=== PATIENT | female | born 1955 ===

== ENCOUNTER 2024-08-14 16:35 | Inpatient (IN) | payer MEDICAID, SELFPAY ==
[2024-08-14 17:10] VITALS: BP 153/76; PULSE 68; RESP 20; TEMP 36.7; O2SAT 100
--- OUTSIDE RECORDS SUMMARY | 2024-08-14 17:50 | XMS_ITS | Encounter Summary ---
Author Organization Formerly [facility] Address [address] [place] [address] Phone Care Team Providers Care Boom Boss Name Role Phone Mindi Ortiz Charu Unavailable Ruchi Floyd MD Primary Care Provider [phone] Ruchi Floyd MD Unavailable [phone] Encounter Details Date Type Department Care Team (Latest Contact Info) Description 08/19/2021 Ancillary Orders [facility] [address] [place] [address] Ruchi Floyd MD [address] [place] [address] [address] [place] [address] [email or web address] Breast asymmetry in female Social History Tobacco Use Types Packs/Day Years Used Date Smoking Tobacco: Former Cigarettes Q uit: 1985 Smokeless Tobacco: Never Alcohol Use Standard Drinks/Week Comments Never 0 (1 standard drink = 0.6 oz pur e alcohol) Comments Unknown Sex and Gender Information Value Date Recorded Sex Assigned at Female 06/19/2021 9:11 AM EDT Legal Sex Female 10:29 AM EDT Gender Identity Female 06/19/2021 9:11 AM EDT Sexual Orientation Straight 06/19/2021 9: 11 AM EDT documented as of this encounter Plan of Treatment Scheduled Procedures Name Priority Associated Diagnoses Date/Ti me COLONOSCOPY Annual physical exam Gastroesophageal reflux disease, unspecified whether esophagitis present documented as of this encounter Results * BI MAMMOGRAM DIAGNOSTIC WITH TOMOSYNTHESIS WITH CAD (RIGHT) (08/21/2021 2:48 PM EDT) Anatomical Region Laterality Modality Breast Right, Breast Bilateral Right M ammography 08/21/2021 Impressions 08/21/2021 2:53 PM EDT Asymmetry in the right breast noted at screening is shown to be benign superimposition of normal structures. There is no mammographic evidence of malignancy. BI-RADS Category 1: Negative Narrative 08/21/2021 2:53 PM EDT HISTORY: 66 year old female seen for callback from screening mammography. PROCEDURE: Diagnostic mammographic and tomosynthesis views were obtained. Computer-aided detection was utilized by the radiologist in the interpretation of this examination. RIGHT BREAST MAMMOGRAM: The present study is compared to previous imaging. There are scattered fibroglandular densities. The patient was recalled from screening mammography to evaluate an asymmetry in the right breast. ??Additional mammographic imaging demonstrates that the asymmetry seen at screening represented benign superimposition of normal structures. ??No mammographic abnormality is evident. ??The patient should return to annual mammographic screening. Procedure Note Jemima Castillo MD - 08/21/2021 HISTORY: 66 year old female seen for callback from screening mammography. PROCEDURE: Diagnostic mammographic and tomosynthesis views were obtained.Computer-aided detection was utilized by the radiologist in theinterpretation of this examination. RIGHT BREAST MAMMOGRAM: The present study is compared to previous imaging. There are scattered fibroglandular densities. The patient was recalled from screening mammography to evaluate anasymmetry in the right breast. Additional mammographic imagingdemonstrates that the asymmetry seen at screening represented benignsuperimposition of normal structures. No mammographic abnormality isevident. The patient should return to annual mammographic screening. IMPRESSION: Asymmetry in the right breast noted at screening is shown to be benignsuperimposition of normal structures. There is no mammographic evidence ofmalignancy. BI-RADS Category 1: Negative us Ruchi Floyd MD IMG MG EXAMS Final Result documented in this encounter Visit Diagnoses Diagnosis Breast asymmetry in female Breast asymmetry in female documented in this encounter Additional Health Concerns Infection Onset Date Last Indicated Resolved Time COVID-19 10/05/2023 10/05/2023 10/26/2023 1:22 AM EDT Assessment Noted Time PHQ-2 Depression Total Score: 0 08/14/19 1:43 PM EDT documented as of this encounter Care Teams Boom Boss Relationship Specialty Start Date End Date Ruchi Floyd MD [address] [place] [address] [address] [place] [phone] [email or web address] PCP - General Internal Medicine 08/13/21 Mindi Ortiz [address] [place] [phone] [email or web address] Community Health Worker 05/27/21 01/08/22 Ruchi Floyd MD [address] [place] [address] [place] [phone] [email or web address] Attributed Provider 07/11/22 07/16/23 documented as of this encounter Additional Source Comments The information contained in this document represents components of the legal health record. It is not the complete legal health record.Formerly [facility]
--- NOTE | 2024-08-14 18:31 | PC.ADMIT ---
This is the 1st admission for this 69 y.o. woman to this Behavioral Health Unit at [facility]. Arrived on unit via EMS at 1655 and placed on 5min safety checks, unlocked bathroom. Nurse to nurse done with [facility] ED, referred by crisis with Dx Unspecified Dementia, unspecified severity, with agitation. Advanced Alzheimer's with hx striking, kicking others. Daughter, Cristino, identified as HCP and contacted re: meds at home and what speech language assistant should be utilized during interactions and if sign language interpreter needed. Cristino states pt does not speak in any language, but motor vehicle parts interpreter should be utilized if attempted. Tox screen negative 08/05/24, COVID negative 08/06/24. Med list from [facility] and recent home use differ from list obtained from [facility] ED; provider, Elly Chu notified. Pt has been in [facility] ED since 08/05/24, most recent med list. Upon arrival pt is confused, responding minimally in nonsensical sounds/words. Arrived with stuffed Christie Mouse which she threw at EMS personnel. Grabbing tightly at all items located near her. Pinched, struck at staff lightly during skin assessment, removal of prior clothes. Unable to participate in admission process. Information retrieved via crisis eval, daughters and nurse to nurse [facility] ED. Restlessness noted while in milieu, pacing frequently, attempting to open doors. Difficult to redirect, but continued to pace and go to different doors to try and open. Holding baby doll and intermittently hits it against things. Admission orders received from Elly Chu, provider.
[2024-08-14 19:18] VITALS: BMI 23.5
[2024-08-14] MEDS: OLANZapine 5 MG TABLET PO ×2 (21:40)
[2024-08-14] MEDS: QUEtiapine Fumarate 25 MG TABLET PO (21:40)
[2024-08-14] MEDS: traZODone HCL 50 MG TABLET PO (21:40)
--- NOTE | 2024-08-15 10:33 | HO.HCP ---
Health Care Proxy Invocation Health Care Proxy Declaration: I, Samuel Weathers MD , on the date cited below, have determined that, ___Leonie Muller , lacks the capacity to make or communicate, informed health care decision. This determination is made in accordance with accepted standards of medical judgment and pursuant to [place], the [facility] Care Proxy Law. The cause, nature, extent and probable duration of the patient's inapacity are described below: Cause: Alzheimer's Dementia Nature: Alzheimer's Dementia Extent: complete Probable Duration of Patient's Incapacity: permanent
--- NOTE | 2024-08-15 10:35 | HO.PSYADMNOT ---
HPI Date of Service: 08/15/24 Chief Complaint: F03.911 HPI Narrative: pt with advanced alzheimer's dementia who has been cared for at home by her daughter presented to outside hospital with gradually more aggressive behaviors such that family is no longer able to manage her. pt has increasingly romain throwing objects in the house, pushing people, hitting people, biting people. disrobing in front of others. medical w/u at outside ED unremarkable. pt essentially mute, pulling on MD's badge, punching at MD weakly. smiles throughout. on 1:1 for safety. no intelligible speech produced. 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 , worked as director information security. immigrated from [place] 3 yrs ago. Substance History: none Diagnostics Vital Signs (24Hr): Vital Signs - 24 hr 08/14/24 17:10 Temperature 98.1 F Pulse Rate 68 Respiratory Rate 20 Blood Pressure 153/76 H Pulse Oximetry 100 Oxygen Delivery Method Room Air BMI result Body Mass Index 23.5 Meds/Allergies Meds Home Medications ?Medication ?Instructions ?Recorded ?Confirmed ?Type mirtazapine 7.5 mg tablet 7.5 mg PO BEDTIME PRN Insomnia 08/14/24 08/14/24 History olanzapine 5 mg disintegrating 5 mg PO BEDTIME 08/14/24 08/14/24 History tablet olanzapine 5 mg disintegrating 5 mg PO Q8H PRN Paranoia 08/14/24 08/14/24 History tablet quetiapine 25 mg tablet 25 mg PO Q6H PRN Racing thoughts 08/14/24 08/14/24 History Allergies Allergies Allergy/AdvReac Type Severity Reaction Status Date / Time No Known Allergies Allergy Verified 08/14/24 18:16 Mental Status Exam Mental Status Exam Narrative: pleasant, essentially non-verbal. attempts to pull off MD's badge and also makes a cheeky slow-motion attempt to punch at MD. no PMA/PMR otherwise. affect smiling throughout. mood unable to assess. SI/HI/AVH unable to assess. Assessment & Plan Assessment & Plan (1) Alzheimer dementia with behavioral disturbance: Status: Acute Code(s): G30.9 - Alzheimer's disease, unspecified; F02.818 - Dementia in other diseases classified elsewhere, unspecified severity, with other behavioral disturbance Plan 1:1 for safety. HCP invoked. family mtg help with SW and CONDEMNATION ENGINEER. will clarify medications allowable per HCP. contact outpt provider for collateral. in the meantime, observe pt's baseline behaviors. Patient educated on: other Reason for continued inpatient stay Substantial Risk for: harm to others and inability to function Statement Statement: I have reviewed the history and physical and performed a pertinent examination on my patient. No changes have occurred unless specified. If the History and Physical was not performed prior to admission, the Hospitalist's service will be consulted for completing the admission physical. Time Spent With Patient Time: Total time managing care of this patient today __55__ minutes.
--- NOTE | 2024-08-15 11:26 | HO.PM.IMCN ---
History of Present Illness Data of Consult Service Date: 08/15/24 Primary Care Provider: Unknown Physician HPI Reason for consult: Medical consult 69-year-old female with Alzheimer's dementia with behavioral disturbance. She is brought to the ED at [facility] due to increased behavioral disturbances. Her family is unable to take care of her any longer at home due to behavioral disturbances. Notably she has been nonverbal for about [address] head did not demonstrate any acute process, her CMP was within normal limits, magnesium within normal limits, UA was negative, and CBC was within normal limits no viral illnesses and she had a negative tox screen. She is admitted here for further care. On exam she is ambulatory has a one-to-one right now. Does not answer questions or follow directions. She does not appear to be in any acute distress. Review of Systems Review of Systems: Patient is unable to provide review of symptoms due to nonverbal and advanced Alzheimer's dementia [facility] Social History Household Members: Family Housing: Unknown / Unable to assess Do you presently have visiting nurse or other home services: No Patient Tobacco Use Status: Never used Tobacco Smoked in Last 30 Days: No e-Cigarette/Vaping Use: Never Used Currently Displaying Signs/Symptoms of Drug Intoxication Withdrawal: No Advance Directives: No Advance Directives Information Provided: No Do you have a plan to hurt others: No Plan Recently lost weight without trying: No Eating poorly because of decreased appetite: No Nutrition Risks: No Nutritional Risk Patient : No : No Poor oral hygiene: No service: No Meds Allergies Allergy/AdvReac Type Severity Reaction Status Date / Time No Known Allergies Allergy Verified 08/14/24 18:16 Active Medications: Current Medications Acetaminophen (Acetaminophen 325 Mg Tablet) 650 mg PO Q6H PRN PRN Reason: Headache/Pain, Scale 1-10 Al Hydroxide/Mg Hydroxide (Magnesium Hydrox/Alum Hydrox 30 Ml Oral.Susp) 30 ml PO Q6H PRN PRN Reason: Heartburn/Nausea Magnesium Hydroxide (Milk Of Magnesia 30 Ml Oral.Susp) 30 ml PO DAILY PRN PRN Reason: Constipation Mirtazapine (Mirtazapine 7.5 Mg Tablet) 7.5 mg PO BEDTIME PRN PRN Reason: Insomnia Olanzapine (Olanzapine 5 Mg Tablet) 5 mg PO BEDTIME DORA Last Admin: 08/14/24 21:40 Dose: 5 mg Olanzapine (Olanzapine 5 Mg Tablet) 5 mg PO Q8H PRN PRN Reason: Paranoia Last Admin: 08/14/24 21:40 Dose: 5 mg Quetiapine Fumarate (Quetiapine Fumarate 25 Mg Tablet) 25 mg PO Q6H PRN PRN Reason: Racing thoughts Last Admin: 08/14/24 21:40 Dose: 25 mg Trazodone HCl (Trazodone Hcl 50 Mg Tablet) 50 mg PO BEDTIME MRX1 PRN PRN Reason: Insomnia Last Admin: 08/14/24 21:40 Dose: 50 mg Home Medications ?Medication ?Instructions ?Recorded ?Confirmed ?Last Taken ?Type mirtazapine 7.5 mg tablet 7.5 mg PO BEDTIME PRN Insomnia 08/14/24 08/14/24 08/13/24 20:06 History olanzapine 5 mg disintegrating 5 mg PO BEDTIME 08/14/24 08/14/24 08/13/24 20:06 History tablet olanzapine 5 mg disintegrating 5 mg PO Q8H PRN Paranoia 08/14/24 08/14/24 08/14/24 12:52 History tablet quetiapine 25 mg tablet 25 mg PO Q6H PRN Racing thoughts 08/14/24 08/14/24 08/13/24 21:28 History Physical Exam Vital Signs and Narrative: Vital Signs: Last Vital Signs Temp 98.1 F 08/14/24 17:10 Pulse 68 08/14/24 17:10 Resp 20 08/14/24 17:10 BP 153/76 H 08/14/24 17:10 Pulse Ox 100 08/14/24 17:10 O2 Del Method Room Air 08/14/24 17:10 BMI result Body Mass Index 23.5 CONST: Alert and oriented, in NAD. Well nourished, non verbal HEENT: Normocephalic, atraumatic, MMM RESP: Lungs clear, RRR even and regular HEART:,RRR, S1, S2. no edema GI:Abdomen Soft NT, ND. + BS times four :Deferred SKIN: Warm dry and intact, no visible lesions or rashes NEURO:CN II-XII Intact bilaterally, ambulating with steady gait. PSYCH: Normal affect Assessment and Plan (1) Alzheimer dementia with behavioral disturbance: Status: Acute Plan 69-year-old female with advanced Alzheimer's dementia with behavioral disturbances, admitted from [facility] after she was brought there by her family due to increased behavioral disturbances and inability to care for her. Alzheimer's dementia with behavioral disturbance Psychiatric care per team 1to1 at this time Thank you for allowing me to participate in the care of this patient. Will follow as needed. Please notify medical providers of any acute complaints or issues arise
[2024-08-15] MEDS: OLANZapine 5 MG TABLET PO (11:38)
[2024-08-15 20:00] VITALS: BP 121/60; PULSE 61; RESP 16; TEMP 36.6; O2SAT 99
[2024-08-16] MEDS: OLANZapine 5 MG TABLET PO ×2 (04:52→20:44)
[2024-08-16] MEDS: QUEtiapine Fumarate 25 MG TABLET PO ×2 (04:53→21:39)
[2024-08-16 08:00] VITALS: RESP 18
[2024-08-16 20:00] VITALS: BP 122/62; PULSE 62; RESP 16; TEMP 36.5; O2SAT 99
--- NOTE | 2024-08-16 20:56 | HO.PSYCHPN ---
Subjective Subjective Date of Service: 08/16/24 Reason For Visit: F03.911 Subjective Notes: Conditional Voluntary Healthcare Proxy: Yes Interim History: Pt slept through the night. She is ambulating with one to one. Not oriented to place, month, year nor situation. mostly non verbal, smiling. Review of Systems Review of Systems Patient is unable to provide review of symptoms due to nonverbal and advanced Alzheimer's dementia Mental Status Exam Mental Status Exam Narrative: pleasant, essentially non-verbal. attempts to pull off MD's badge and also makes a cheeky slow-motion attempt to punch at MD. no PMA/PMR otherwise. affect smiling throughout. mood unable to assess. SI/HI/AVH unable to assess. Diagnostics Vital Signs (24Hr): Vital Signs - 24 hr 08/16/24 08:00 08/16/24 20:00 Temperature 97.7 F Pulse Rate 62 Respiratory Rate 18 16 Blood Pressure 122/62 Pulse Oximetry 99 Oxygen Delivery Method Room Air BMI result Body Mass Index 23.5 Medications Medications Current Medications Acetaminophen (Acetaminophen 325 Mg Tablet) 650 mg PO Q6H PRN PRN Reason: Headache/Pain, Scale 1-10 Al Hydroxide/Mg Hydroxide (Magnesium Hydrox/Alum Hydrox 30 Ml Oral.Susp) 30 ml PO Q6H PRN PRN Reason: Heartburn/Nausea Magnesium Hydroxide (Milk Of Magnesia 30 Ml Oral.Susp) 30 ml PO DAILY PRN PRN Reason: Constipation Mirtazapine (Mirtazapine 7.5 Mg Tablet) 7.5 mg PO BEDTIME PRN PRN Reason: Insomnia Olanzapine (Olanzapine 5 Mg Tablet) 5 mg PO BEDTIME DORA Last Admin: 08/16/24 20:44 Dose: 5 mg Olanzapine (Olanzapine 5 Mg Tablet) 5 mg PO Q8H PRN PRN Reason: Paranoia Last Admin: 08/16/24 04:52 Dose: 5 mg Quetiapine Fumarate (Quetiapine Fumarate 25 Mg Tablet) 25 mg PO Q6H PRN PRN Reason: Racing thoughts Last Admin: 08/16/24 04:53 Dose: 25 mg Trazodone HCl (Trazodone Hcl 50 Mg Tablet) 50 mg PO BEDTIME MRX1 PRN PRN Reason: Insomnia Last Admin: 08/14/24 21:40 Dose: 50 mg Allergies Allergies Allergy/AdvReac Type Severity Reaction Status Date / Time No Known Allergies Allergy Verified 08/14/24 18:16 Assessment & Plan Assessment & Plan (1) Alzheimer dementia with behavioral disturbance: Status: Acute Code(s): G30.9 - Alzheimer's disease, unspecified; F02.818 - Dementia in other diseases classified elsewhere, unspecified severity, with other behavioral disturbance Plan 08/16 will simplify regimen- d/c seroquel. will keep olanzapine 5mg po qhs, add 2.5mg po daily at 1300, prn olanzapine 2.5mg po TID prn agitation. monitor oversedation, maintain adequate hydration, s/s of ortho hotn. VS stable. Reason for continued inpatient stay Substantial Risk for: inability to function Time Spent With Patient Time: Total time managing care of this patient today ____ minutes.
[2024-08-16] MEDS: traZODone HCL 50 MG TABLET PO (21:39)
[2024-08-17 11:17] VITALS: BMI 23.0
[2024-08-17] MEDS: OLANZapine 2.5 MG TABLET PO (13:13)
--- NOTE | 2024-08-17 16:16 | P.PNPSI_ITS ---
Subjective Subjective Date of Service: 08/17/24 Reason For Visit: F03.911 Interim History: wandering, intrusive, touching others. Mental Status Exam Mental Status Exam Narrative: pleasant, non-verbal. pacing/wandering. affect smiling throughout. mood unable to assess. SI/HI/AVH unable to assess. Diagnostics Vital Signs (24Hr): Vital Signs - 24 hr 08/16/24 20:00 Temperature 97.7 F Pulse Rate 62 Respiratory Rate 16 Blood Pressure 122/62 Pulse Oximetry 99 Oxygen Delivery Method Room Air BMI result Body Mass Index 23.0 Medications Medications Current Medications Acetaminophen (Acetaminophen 325 Mg Tablet) 650 mg PO Q6H PRN PRN Reason: Headache/Pain, Scale 1-10 Al Hydroxide/Mg Hydroxide (Magnesium Hydrox/Alum Hydrox 30 Ml Oral.Susp) 30 ml PO Q6H PRN PRN Reason: Heartburn/Nausea Magnesium Hydroxide (Milk Of Magnesia 30 Ml Oral.Susp) 30 ml PO DAILY PRN PRN Reason: Constipation Olanzapine (Olanzapine 5 Mg Tablet) 5 mg PO BEDTIME [facility] Last Admin: 08/16/24 20:44 Dose: 5 mg Olanzapine (Olanzapine 2.5 Mg Tablet) 2.5 mg PO TID PRN PRN Reason: agitation Olanzapine (Olanzapine 2.5 Mg Tablet) 2.5 mg PO DAILY@1300 [facility] Last Admin: 08/17/24 13:13 Dose: 2.5 mg Trazodone HCl (Trazodone Hcl 50 Mg Tablet) 50 mg PO BEDTIME PRN PRN Reason: Insomnia Allergies Allergies Allergy/AdvReac Type Severity Reaction Status Date / Time No Known Allergies Allergy Verified 08/14/24 18:16 Assessment & Plan Assessment & Plan (1) Alzheimer dementia with behavioral disturbance: Status: Acute Code(s): G30.9 - Alzheimer's disease, unspecified; F02.818 - Dementia in other diseases classified elsewhere, unspecified severity, with other behavioral disturbance Plan 08/16 will simplify regimen- d/c seroquel. will keep olanzapine 5mg po qhs, add 2.5mg po daily at 1300, prn olanzapine 2.5mg po TID prn agitation. monitor oversedation, maintain adequate hydration, s/s of ortho hotn. VS stable. 08/17: active, wandering, intrusive. add VPA 125 mg TID. otherwise continue current mgmt. case D/W johanna and ELIZABETH Lanza. Reason for continued inpatient stay Substantial Risk for: harm to others and inability to function Time Spent With Patient Time: Total time managing care of this patient today _25___ minutes.
[2024-08-17] MEDS: Divalproex Sodium Sprinkles 125 MG CAP.DR.SPR PO ×2 (16:53→20:51)
[2024-08-17 20:00] VITALS: BP 129/65; PULSE 64; RESP 16; TEMP 36.3; O2SAT 99
[2024-08-17] MEDS: OLANZapine 5 MG TABLET PO (20:51)
[2024-08-18 08:00] VITALS: BP 118/69; PULSE 66; RESP 16; TEMP 36.3; O2SAT 99
[2024-08-18] MEDS: Divalproex Sodium Sprinkles 125 MG CAP.DR.SPR PO ×3 (09:54→20:32)
[2024-08-18] MEDS: OLANZapine 2.5 MG TABLET PO (13:17)
[2024-08-18 20:00] VITALS: BP 127/66; PULSE 80; RESP 16; TEMP 36.9; O2SAT 99
[2024-08-18] MEDS: Acetaminophen 325 MG TABLET 650 MG PO (20:31)
[2024-08-18] MEDS: OLANZapine 5 MG TABLET PO (20:32)
[2024-08-18] MEDS: traZODone HCL 50 MG TABLET PO (20:32)
[2024-08-19] MEDS: Divalproex Sodium Sprinkles 125 MG CAP.DR.SPR PO ×3 (10:17→20:44)
[2024-08-19 11:14] VITALS: BP 132/64; PULSE 89; RESP 16; TEMP 36.8
[2024-08-19] MEDS: OLANZapine 2.5 MG TABLET PO (12:25)
[2024-08-19 20:00] VITALS: BP 152/63; PULSE 70; RESP 18; TEMP 37; O2SAT 100
[2024-08-19] MEDS: Acetaminophen 325 MG TABLET 650 MG PO (20:44)
[2024-08-19] MEDS: traZODone HCL 50 MG TABLET PO (20:44)
[2024-08-19] MEDS: OLANZapine 5 MG TABLET PO (20:44)
--- NOTE | 2024-08-19 23:33 | P.PNPSI_ITS ---
Subjective Subjective Date of Service: 08/19/24 Reason For Visit: F03.911 Interim History: Met with patient; discussed with team Patient walking around aimlessly, disorganized, needing one-to-one otherwise walking into other people's bedrooms. Patient does not talk; has a fixed smile. Mental Status Exam Mental Status Exam Narrative: pleasant, non-verbal. Disorganized pacing/wandering. affect with fixed smile. mood unable to assess. SI/HI/AVH unable to assess. Diagnostics Vital Signs (24Hr): Vital Signs - 24 hr 08/19/24 11:14 08/19/24 20:00 Temperature 98.2 F 98.6 F Pulse Rate 89 70 Respiratory Rate 16 18 Blood Pressure 132/64 152/63 H Pulse Oximetry 100 Oxygen Delivery Method Room Air BMI result Body Mass Index 23.0 Medications Medications Current Medications Acetaminophen (Acetaminophen 325 Mg Tablet) 650 mg PO Q6H PRN PRN Reason: Headache/Pain, Scale 1-10 Last Admin: 08/19/24 20:44 Dose: 650 mg Al Hydroxide/Mg Hydroxide (Magnesium Hydrox/Alum Hydrox 30 Ml Oral.Susp) 30 ml PO Q6H PRN PRN Reason: Heartburn/Nausea Divalproex Sodium (Divalproex Sodium Sprinkles 125 Mg ) 125 mg PO TID [facility] Last Admin: 08/19/24 20:44 Dose: 125 mg Magnesium Hydroxide (Milk Of Magnesia 30 Ml Oral.Susp) 30 ml PO DAILY PRN PRN Reason: Constipation Olanzapine (Olanzapine 5 Mg Tablet) 5 mg PO BEDTIME [facility] Last Admin: 08/19/24 20:44 Dose: 5 mg Olanzapine (Olanzapine 2.5 Mg Tablet) 2.5 mg PO TID PRN PRN Reason: agitation Olanzapine (Olanzapine 2.5 Mg Tablet) 2.5 mg PO DAILY@1300 [facility] Last Admin: 08/19/24 12:25 Dose: 2.5 mg Trazodone HCl (Trazodone Hcl 50 Mg Tablet) 50 mg PO BEDTIME PRN PRN Reason: Insomnia Last Admin: 08/19/24 20:44 Dose: 50 mg Allergies Allergies Allergy/AdvReac Type Severity Reaction Status Date / Time No Known Allergies Allergy Verified 08/14/24 18:16 Assessment & Plan Assessment & Plan (1) Alzheimer dementia with behavioral disturbance: Status: Acute Code(s): G30.9 - Alzheimer's disease, unspecified; F02.818 - Dementia in other diseases classified elsewhere, unspecified severity, with other behavioral disturbance Plan 08/16 will simplify regimen- d/c seroquel. will keep olanzapine 5mg po qhs, add 2.5mg po daily at 1300, prn olanzapine 2.5mg po TID prn agitation. monitor oversedation, maintain adequate hydration, s/s of ortho hotn. VS stable. 08/17: active, wandering, intrusive. add VPA 125 mg TID. otherwise continue current mgmt. case D/W johanna and ELIZABETH Lanza. 08/19 staff reports no aggressive behaviors Reason for continued inpatient stay Substantial Risk for: inability to function Time Spent With Patient Time: Total time managing care of this patient today ____ minutes.
[2024-08-20 08:00] VITALS: RESP 16
[2024-08-20] MEDS: Divalproex Sodium Sprinkles 125 MG CAP.DR.SPR PO ×3 (08:47→20:27)
[2024-08-20] MEDS: OLANZapine 2.5 MG TABLET PO (13:06)
--- NOTE | 2024-08-20 14:48 | HO.PSYCHPN ---
Subjective Subjective Date of Service: 08/20/24 Reason For Visit: F03.911 Interim History: Met with patient; discussed with team No change in presentation; walking aimlessly, requiring one-to-one for redirection; fixed smile. Remains without any agitation. Requires help with all ADLs Mental Status Exam Mental Status Exam Narrative: pleasant, non-verbal. Disorganized pacing/wandering. affect with fixed smile. mood unable to assess. SI/HI/AVH unable to assess. Diagnostics Vital Signs (24Hr): Vital Signs - 24 hr 08/19/24 20:00 08/20/24 08:00 Temperature 98.6 F Pulse Rate 70 Respiratory Rate 18 16 Blood Pressure 152/63 H Pulse Oximetry 100 Oxygen Delivery Method Room Air BMI result Body Mass Index 23.0 Medications Medications Current Medications Acetaminophen (Acetaminophen 325 Mg Tablet) 650 mg PO Q6H PRN PRN Reason: Headache/Pain, Scale 1-10 Last Admin: 08/19/24 20:44 Dose: 650 mg Al Hydroxide/Mg Hydroxide (Magnesium Hydrox/Alum Hydrox 30 Ml Oral.Susp) 30 ml PO Q6H PRN PRN Reason: Heartburn/Nausea Divalproex Sodium (Divalproex Sodium Sprinkles 125 Mg [place].) 125 mg PO TID [facility] Last Admin: 08/20/24 08:47 Dose: 125 mg Magnesium Hydroxide (Milk Of Magnesia 30 Ml Oral.Susp) 30 ml PO DAILY PRN PRN Reason: Constipation Olanzapine (Olanzapine 5 Mg Tablet) 5 mg PO BEDTIME [facility] Last Admin: 08/19/24 20:44 Dose: 5 mg Olanzapine (Olanzapine 2.5 Mg Tablet) 2.5 mg PO TID PRN PRN Reason: agitation Olanzapine (Olanzapine 2.5 Mg Tablet) 2.5 mg PO DAILY@1300 [facility] Last Admin: 08/20/24 13:06 Dose: 2.5 mg Trazodone HCl (Trazodone Hcl 50 Mg Tablet) 50 mg PO BEDTIME PRN PRN Reason: Insomnia Last Admin: 08/19/24 20:44 Dose: 50 mg Allergies Allergies Allergy/AdvReac Type Severity Reaction Status Date / Time No Known Allergies Allergy Verified 08/14/24 18:16 Assessment & Plan Assessment & Plan (1) Alzheimer dementia with behavioral disturbance: Status: Acute Code(s): G30.9 - Alzheimer's disease, unspecified; F02.818 - Dementia in other diseases classified elsewhere, unspecified severity, with other behavioral disturbance Plan 08/16 will simplify regimen- d/c seroquel. will keep olanzapine 5mg po qhs, add 2.5mg po daily at 1300, prn olanzapine 2.5mg po TID prn agitation. monitor oversedation, maintain adequate hydration, s/s of ortho hotn. VS stable. 08/17: active, wandering, intrusive. add VPA 125 mg TID. otherwise continue current mgmt. case D/W johanna and ELIZABETH Lanza. 08/19 staff reports no aggressive behaviors Reason for continued inpatient stay Substantial Risk for: inability to function Time Spent With Patient Time: Total time managing care of this patient today ____ minutes.
[2024-08-20 20:00] VITALS: BP 113/59; PULSE 87; RESP 17; TEMP 36.3; O2SAT 97
[2024-08-20] MEDS: Acetaminophen 325 MG TABLET 650 MG PO (20:27)
[2024-08-20] MEDS: OLANZapine 5 MG TABLET PO (20:27)
[2024-08-20] MEDS: traZODone HCL 50 MG TABLET PO (20:28)
[2024-08-21 08:00] VITALS: BP 133/62; PULSE 62; RESP 18; TEMP 36.2; O2SAT 100
[2024-08-21] MEDS: Divalproex Sodium Sprinkles 125 MG CAP.DR.SPR PO ×3 (09:32→20:45)
[2024-08-21] MEDS: OLANZapine 2.5 MG TABLET PO (12:20)
--- NOTE | 2024-08-21 13:46 | P.PNPSI_ITS ---
Subjective Subjective Date of Service: 08/21/24 Reason For Visit: F03.911 Interim History: snoozing loudly. per 1:1, pt was up from 0600 through just prior to MD's visit around 1130. not rousable to loud voice. per staff, sleeping, talking with one to one. No aggression. Mental Status Exam Mental Status Exam Narrative: pleasant, non-verbal. snoozing in bed with blanket over her face. mood unable to assess. SI/HI/AVH unable to assess. Diagnostics Vital Signs (24Hr): Vital Signs - 24 hr 08/20/24 20:00 08/21/24 08:00 Temperature 97.3 F 97.2 F Pulse Rate 87 62 Respiratory Rate 17 18 Blood Pressure 113/59 L 133/62 Pulse Oximetry 97 100 Oxygen Delivery Method Room Air Room Air BMI result Body Mass Index 23.0 Medications Medications Current Medications Acetaminophen (Acetaminophen 325 Mg Tablet) 650 mg PO Q6H PRN PRN Reason: Headache/Pain, Scale 1-10 Last Admin: 08/20/24 20:27 Dose: 650 mg Al Hydroxide/Mg Hydroxide (Magnesium Hydrox/Alum Hydrox 30 Ml Oral.Susp) 30 ml PO Q6H PRN PRN Reason: Heartburn/Nausea Divalproex Sodium (Divalproex Sodium Sprinkles 125 Mg ) 125 mg PO TID [facility] Last Admin: 08/21/24 09:32 Dose: 125 mg Magnesium Hydroxide (Milk Of Magnesia 30 Ml Oral.Susp) 30 ml PO DAILY PRN PRN Reason: Constipation Olanzapine (Olanzapine 5 Mg Tablet) 5 mg PO BEDTIME [facility] Last Admin: 08/20/24 20:27 Dose: 5 mg Olanzapine (Olanzapine 2.5 Mg Tablet) 2.5 mg PO TID PRN PRN Reason: agitation Olanzapine (Olanzapine 2.5 Mg Tablet) 2.5 mg PO DAILY@1300 [facility] Last Admin: 08/21/24 12:20 Dose: 2.5 mg Trazodone HCl (Trazodone Hcl 50 Mg Tablet) 50 mg PO BEDTIME PRN PRN Reason: Insomnia Last Admin: 08/20/24 20:28 Dose: 50 mg Allergies Allergies Allergy/AdvReac Type Severity Reaction Status Date / Time No Known Allergies Allergy Verified 08/14/24 18:16 Assessment & Plan Assessment & Plan (1) Alzheimer dementia with behavioral disturbance: Status: Acute Code(s): G30.9 - Alzheimer's disease, unspecified; F02.818 - Dementia in other diseases classified elsewhere, unspecified severity, with other behavioral disturbance Plan 08/16 will simplify regimen- d/c seroquel. will keep olanzapine 5mg po qhs, add 2.5mg po daily at 1300, prn olanzapine 2.5mg po TID prn agitation. monitor oversedation, maintain adequate hydration, s/s of ortho hotn. VS stable. 08/17: active, wandering, intrusive. add VPA 125 mg TID. otherwise continue current mgmt. case D/W johanna and ELIZABETH Lanza. 08/19 staff reports no aggressive behaviors 08/21: no aggressive behaviors. wandering. talking to nobody. continue current mgmt. Reason for continued inpatient stay Substantial Risk for: harm to self, harm to others and inability to function Time Spent With Patient Time: Total time managing care of this patient today ____ minutes.
[2024-08-21 20:00] VITALS: BP 129/60; PULSE 72; RESP 16; TEMP 36.1; O2SAT 100
[2024-08-21] MEDS: OLANZapine 5 MG TABLET PO (20:45)
[2024-08-22 08:08] VITALS: BP 116/77; PULSE 71; RESP 16; TEMP 36.2; O2SAT 100
[2024-08-22] MEDS: Divalproex Sodium Sprinkles 125 MG CAP.DR.SPR PO ×3 (08:18→20:35)
--- NOTE | 2024-08-22 12:20 | P.PNPSI_ITS ---
Subjective Subjective Date of Service: 08/22/24 Reason For Visit: F03.911 Interim History: generally less aggressive and intrusive. per staff, pleasantly confused. wandering. CO. lightly attempting to strike others on occasion. difficult to redirect. eating, taking meds. Mental Status Exam Mental Status Exam Narrative: pleasant, essentially non-verbal. no PMA/PMR. affect smiling throughout. mood unable to assess. SI/HI/AVH unable to assess. Diagnostics Vital Signs (24Hr): Vital Signs - 24 hr 08/21/24 20:00 08/22/24 08:08 Temperature 97 F 97.2 F Pulse Rate 72 71 Respiratory Rate 16 16 Blood Pressure 129/60 116/77 Pulse Oximetry 100 Oxygen Delivery Method Room Air BMI result Body Mass Index 23.0 Medications Medications Current Medications Acetaminophen (Acetaminophen 325 Mg Tablet) 650 mg PO Q6H PRN PRN Reason: Headache/Pain, Scale 1-10 Last Admin: 08/20/24 20:27 Dose: 650 mg Al Hydroxide/Mg Hydroxide (Magnesium Hydrox/Alum Hydrox 30 Ml Oral.Susp) 30 ml PO Q6H PRN PRN Reason: Heartburn/Nausea Divalproex Sodium (Divalproex Sodium Sprinkles 125 Mg Zackery.) 125 mg PO TID [facility] Last Admin: 08/22/24 08:18 Dose: 125 mg Magnesium Hydroxide (Milk Of Magnesia 30 Ml Oral.Susp) 30 ml PO DAILY PRN PRN Reason: Constipation Olanzapine (Olanzapine 5 Mg Tablet) 5 mg PO BEDTIME [facility] Last Admin: 08/21/24 20:45 Dose: 5 mg Olanzapine (Olanzapine 2.5 Mg Tablet) 2.5 mg PO TID PRN PRN Reason: agitation Olanzapine (Olanzapine 2.5 Mg Tablet) 2.5 mg PO BID@0900,1500 [facility] Trazodone HCl (Trazodone Hcl 50 Mg Tablet) 50 mg PO BEDTIME PRN PRN Reason: Insomnia Last Admin: 08/20/24 20:28 Dose: 50 mg Allergies Allergies Allergy/AdvReac Type Severity Reaction Status Date / Time No Known Allergies Allergy Verified 08/14/24 18:16 Assessment & Plan Assessment & Plan (1) Alzheimer dementia with behavioral disturbance: Status: Acute Code(s): G30.9 - Alzheimer's disease, unspecified; F02.818 - Dementia in other diseases classified elsewhere, unspecified severity, with other behavioral disturbance Plan 08/16 will simplify regimen- d/c seroquel. will keep olanzapine 5mg po qhs, add 2.5mg po daily at 1300, prn olanzapine 2.5mg po TID prn agitation. monitor oversedation, maintain adequate hydration, s/s of ortho hotn. VS stable. 08/17: active, wandering, intrusive. add VPA 125 mg TID. otherwise continue current mgmt. case D/W johanna and ELIZABETH Lanza. 08/19 staff reports no aggressive behaviors 08/21: no aggressive behaviors. wandering. talking to nobody. continue current mgmt. 08/22: increase zyprexa from 2.5 at 1 pm and 5 at HS to 2.5 at 0900, 2.5 at 1500, and 5 at HS. check labs in the morning. otherwise continue current mgmt. Reason for continued inpatient stay Substantial Risk for: harm to others and inability to function Time Spent With Patient Time: Total time managing care of this patient today __25__ minutes.
[2024-08-22] MEDS: OLANZapine 2.5 MG TABLET PO (14:55)
[2024-08-22 20:00] VITALS: BP 130/60; PULSE 85; RESP 18; TEMP 36.2; O2SAT 100
[2024-08-22] MEDS: OLANZapine 5 MG TABLET PO (20:36)
[2024-08-22] MEDS: traZODone HCL 50 MG TABLET PO (20:44)
[2024-08-22] MEDS: Acetaminophen 325 MG TABLET 650 MG PO (20:44)
[2024-08-23 08:02] LABS: MANUAL DIFF FLAG NO
[2024-08-23 08:04] LABS: Basophils Percent Auto 0.6 % (0-2); Eosinophils Absolute Auto 0.1 X10*3/uL (0.0-0.4); Hematocrit 39.1 % (37.0-47.0); Hemoglobin 12.9 g/dl (12.0-16.0); Imm Gran Abs Auto 0.02 X10*3/uL (0.00-0.03); Imm Gran Pct Auto 0.4 % (0.0-0.4); Lymphocytes Absolute Auto 2.4 X10*3/uL (1.2-4.9); Lymphocytes Percent Auto 45.8 % (20-40); Mean Corpuscular Hemoglobin 30.3 pg (27.0-33.0); Mean Corpuscular Volume 91.8 fL (80.0-98.0); Mean Platelet Volume 9.9 fL (9.4-12.3); Monocytes Absolute Auto 0.4 X10*3/uL (0.1-1.2); Monocytes Percent Auto 8.1 % (2-11); Neutrophils Absolute Auto 2.3 x10*3/uL (2.0-8.3); Neutrophils Percent Auto 44.1 % (45-73); Platelet Count 253 X10*3/uL (160-400); Red Blood Count 4.26 X10*6/uL (4.20-5.50); Red Cell Distribution Width 13.3 % (11.0-16.0); White Blood Count 5.2 X10*3/uL (4.8-10.8)
[2024-08-23 08:20] LABS: Alanine Aminotransferase 17 U/L (0-31); Albumin Level 3.8 g/dL (3.5-5.0); Alkaline Phosphatase 65 U/L (39-117); Anion Gap 10 (12-20); Aspartate Amino Transferase 26 U/L (5-31); Bilirubin Direct < 0.2 mg/dL (0.0-0.5); Bilirubin Total 0.2 mg/dL (0.0-1.0); Blood Urea Nitrogen 17 mg/dL (9-16); Calcium 9.1 mg/dL (8.4-10.2); Carbon Dioxide 28 mmol/L (22-29); Chloride 110 mmol/L (96-108); Estimated Glomerular Filt Rate > 60; Glucose Random 90 mg/dL (60-115); Potassium 4.2 mmol/L (3.3-5.1); Sodium 144 mmol/L (135-145); Total Protein 6.6 g/dL (6.5-8.0)
[2024-08-23] MEDS: OLANZapine 2.5 MG TABLET PO ×2 (08:39→16:41)
[2024-08-23] MEDS: Divalproex Sodium Sprinkles 125 MG CAP.DR.SPR PO ×3 (08:39→20:13)
--- NOTE | 2024-08-23 13:46 | P.PNPSI_ITS ---
Subjective Subjective Date of Service: 08/23/24 Reason For Visit: F03.911 Interim History: post-prandial napping at noon. sitter at bedside. per staff, up and active this morning, doing pinching and wandering into others' rooms. slept well overnight with trazodone. Mental Status Exam Mental Status Exam Narrative: pleasant, non-verbal. snoozing in bed. mood unable to assess. SI/HI/AVH unable to assess. Diagnostics Vital Signs (24Hr): Vital Signs - 24 hr 08/22/24 20:00 Temperature 97.1 F Pulse Rate 85 Respiratory Rate 18 Blood Pressure 130/60 Pulse Oximetry 100 Oxygen Delivery Method Room Air BMI result Body Mass Index 23.0 Labs 08/23/24 07:33 08/23/24 07:33 Labs: Laboratory Results - last 48 hr 08/23/24 07:33 WBC 5.2 RBC 4.26 Hgb 12.9 Hct 39.1 MCV 91.8 MCH 30.3 MCHC 33.0 RDW 13.3 Plt Count 253 MPV 9.9 Immature Gran % (Auto) 0.4 Neut % (Auto) 44.1 L Lymph % (Auto) 45.8 H [place] % (Auto) 8.1 Eos % (Auto) 1.0 Baso % (Auto) 0.6 Lymph # (Auto) 2.4 [place] # (Auto) 0.4 Eos # (Auto) 0.1 Baso # (Auto) 0.0 Abs Immat Gran (auto) 0.02 Absolute Neuts (auto) 2.3 Absolute Nucleated RBC 0.000 Nucleated RBC % (auto) 0.0 Sodium 144 Potassium 4.2 Chloride 110 H Carbon Dioxide 28 Anion Gap 10 L BUN 17 H Creatinine 0.67 Estim Creat Clear Calc 54.0 Estimated GFR > 60 Random Glucose 90 Calcium 9.1 Total Bilirubin 0.2 Direct Bilirubin < 0.2 AST 26 ALT 17 Alkaline Phosphatase 65 Total Protein 6.6 Albumin 3.8 Valproic Acid 31.0 L Medications Medications Current Medications Acetaminophen (Acetaminophen 325 Mg Tablet) 650 mg PO Q6H PRN PRN Reason: Headache/Pain, Scale 1-10 Last Admin: 08/22/24 20:44 Dose: 650 mg Al Hydroxide/Mg Hydroxide (Magnesium Hydrox/Alum Hydrox 30 Ml Oral.Susp) 30 ml PO Q6H PRN PRN Reason: Heartburn/Nausea Divalproex Sodium (Divalproex Sodium Sprinkles 125 Mg ) 125 mg PO TID [facility] Last Admin: 08/23/24 08:39 Dose: 125 mg Magnesium Hydroxide (Milk Of Magnesia 30 Ml Oral.Susp) 30 ml PO DAILY PRN PRN Reason: Constipation Olanzapine (Olanzapine 5 Mg Tablet) 5 mg PO BEDTIME [facility] Last Admin: 08/22/24 20:36 Dose: 5 mg Olanzapine (Olanzapine 2.5 Mg Tablet) 2.5 mg PO TID PRN PRN Reason: agitation Olanzapine (Olanzapine 2.5 Mg Tablet) 2.5 mg PO BID@0900,1500 [facility] Last Admin: 08/23/24 08:39 Dose: 2.5 mg Trazodone HCl (Trazodone Hcl 50 Mg Tablet) 50 mg PO BEDTIME [facility] Allergies Allergies Allergy/AdvReac Type Severity Reaction Status Date / Time No Known Allergies Allergy Verified 08/14/24 18:16 Assessment & Plan Assessment & Plan (1) Alzheimer dementia with behavioral disturbance: Status: Acute Code(s): G30.9 - Alzheimer's disease, unspecified; F02.818 - Dementia in other diseases classified elsewhere, unspecified severity, with other behavioral disturbance Plan 08/16 will simplify regimen- d/c seroquel. will keep olanzapine 5mg po qhs, add 2.5mg po daily at 1300, prn olanzapine 2.5mg po TID prn agitation. monitor oversedation, maintain adequate hydration, s/s of ortho hotn. VS stable. 08/17: active, wandering, intrusive. add VPA 125 mg TID. otherwise continue current mgmt. case D/W johanna and ELIZABETH Lanza. 08/19 staff reports no aggressive behaviors 08/21: no aggressive behaviors. wandering. talking to nobody. continue current mgmt. 08/22: increase zyprexa from 2.5 at 1 pm and 5 at HS to 2.5 at 0900, 2.5 at 1500, and 5 at HS. check labs in the morning. otherwise continue current mgmt. 08/23: pinching and wandering continue. unclear if due to addition of morning zyprexa or VPA. check ammonia. slept well last night on trazodone. schedule trazodone. otherwise continue current mgmt. labs reviewed, reassuring. VPA 30. Reason for continued inpatient stay Substantial Risk for: inability to function Time Spent With Patient Time: Total time managing care of this patient today __25__ minutes.
[2024-08-23 18:46] LABS: Ammonia 31 umol/L (13-55)
[2024-08-23 20:00] VITALS: BP 130/60; PULSE 65; TEMP 36.4; O2SAT 99
[2024-08-23] MEDS: OLANZapine 5 MG TABLET PO (20:14)
[2024-08-23] MEDS: traZODone HCL 50 MG TABLET PO (20:14)
[2024-08-24 08:00] VITALS: BP 120/70; PULSE 71; RESP 16; TEMP 36.4
[2024-08-24] MEDS: Divalproex Sodium Sprinkles 125 MG CAP.DR.SPR PO (08:59)
[2024-08-24] MEDS: OLANZapine 2.5 MG TABLET PO ×2 (09:00→15:11)
[2024-08-24] MEDS: Divalproex Sodium Sprinkles 125 MG CAP.DR.SPR 250 MG PO ×2 (15:11→19:52)
[2024-08-24] MEDS: Acetaminophen 325 MG TABLET 650 MG PO (19:51)
[2024-08-24] MEDS: OLANZapine 5 MG TABLET PO (19:52)
[2024-08-24] MEDS: traZODone HCL 50 MG TABLET PO (19:52)
[2024-08-24 20:00] VITALS: BP 128/82; PULSE 81; RESP 18; TEMP 36.7; O2SAT 99
--- NOTE | 2024-08-24 21:40 | P.PNPSI_ITS ---
Subjective Subjective Date of Service: 08/24/24 Reason For Visit: F03.911 Subjective Notes: Conditional Voluntary Healthcare Proxy: Yes Interim History: Pt slept through the night. She has been walking around the unit. seeks sensorial stimulation by grabbing, attempting to bit, pulling. non verbal. family came to see her, discussed progress and plan for d/c next Wednesday. depakote level 31. will increase to decrease some of the restlessness, pacing, grabbing. ammonia wnl. VS stable. Mental Status Exam Mental Status Exam Narrative: Pt with good hygiene, restless, unable to sit for prolonged periods of times, grabbing and pulling. permanent smiling facil expression. mostly mute. Diagnostics Vital Signs (24Hr): Vital Signs - 24 hr 08/24/24 08:00 08/24/24 20:00 Temperature 97.5 F 98.1 F Pulse Rate 71 81 Respiratory Rate 16 18 Blood Pressure 120/70 128/82 Pulse Oximetry 99 Oxygen Delivery Method Room Air BMI result Body Mass Index 23.0 Labs 08/23/24 07:33 08/23/24 07:33 Labs: Laboratory Results - last 48 hr 08/23/24 08/23/24 07:33 18:36 WBC 5.2 RBC 4.26 Hgb 12.9 Hct 39.1 MCV 91.8 MCH 30.3 MCHC 33.0 RDW 13.3 Plt Count 253 MPV 9.9 Immature Gran % (Auto) 0.4 Neut % (Auto) 44.1 L Lymph % (Auto) 45.8 H [place] % (Auto) 8.1 Eos % (Auto) 1.0 Baso % (Auto) 0.6 Lymph # (Auto) 2.4 [place] # (Auto) 0.4 Eos # (Auto) 0.1 Baso # (Auto) 0.0 Abs Immat Gran (auto) 0.02 Absolute Neuts (auto) 2.3 Absolute Nucleated RBC 0.000 Nucleated RBC % (auto) 0.0 Sodium 144 Potassium 4.2 Chloride 110 H Carbon Dioxide 28 Anion Gap 10 L BUN 17 H Creatinine 0.67 Estim Creat Clear Calc 54.0 Estimated GFR > 60 Random Glucose 90 Calcium 9.1 Total Bilirubin 0.2 Direct Bilirubin < 0.2 AST 26 ALT 17 Alkaline Phosphatase 65 Ammonia 31 Total Protein 6.6 Albumin 3.8 Valproic Acid 31.0 L Medications Medications Current Medications Acetaminophen (Acetaminophen 325 Mg Tablet) 650 mg PO Q6H PRN PRN Reason: Headache/Pain, Scale 1-10 Last Admin: 08/24/24 19:51 Dose: 650 mg Al Hydroxide/Mg Hydroxide (Magnesium Hydrox/Alum Hydrox 30 Ml Oral.Susp) 30 ml PO Q6H PRN PRN Reason: Heartburn/Nausea Divalproex Sodium (Divalproex Sodium Sprinkles 125 Mg ) 250 mg PO TID [facility] Last Admin: 08/24/24 19:52 Dose: 250 mg Magnesium Hydroxide (Milk Of Magnesia 30 Ml Oral.Susp) 30 ml PO DAILY PRN PRN Reason: Constipation Olanzapine (Olanzapine 5 Mg Tablet) 5 mg PO BEDTIME [facility] Last Admin: 08/24/24 19:52 Dose: 5 mg Olanzapine (Olanzapine 2.5 Mg Tablet) 2.5 mg PO TID PRN PRN Reason: agitation Olanzapine (Olanzapine 2.5 Mg Tablet) 2.5 mg PO BID@0900,1500 [facility] Last Admin: 08/24/24 15:11 Dose: 2.5 mg Trazodone HCl (Trazodone Hcl 50 Mg Tablet) 50 mg PO BEDTIME [facility] Last Admin: 08/24/24 19:52 Dose: 50 mg Allergies Allergies Allergy/AdvReac Type Severity Reaction Status Date / Time No Known Allergies Allergy Verified 08/14/24 18:16 Assessment & Plan Assessment & Plan (1) Alzheimer dementia with behavioral disturbance: Status: Acute Code(s): G30.9 - Alzheimer's disease, unspecified; F02.818 - Dementia in other diseases classified elsewhere, unspecified severity, with other behavioral disturbance Plan 08/16 will simplify regimen- d/c seroquel. will keep olanzapine 5mg po qhs, add 2.5mg po daily at 1300, prn olanzapine 2.5mg po TID prn agitation. monitor oversedation, maintain adequate hydration, s/s of ortho hotn. VS stable. 08/17: active, wandering, intrusive. add VPA 125 mg TID. otherwise continue current mgmt. case D/W johanna and ELIZABETH Lanza. 08/19 staff reports no aggressive behaviors 08/21: no aggressive behaviors. wandering. talking to nobody. continue current mgmt. 08/22: increase zyprexa from 2.5 at 1 pm and 5 at HS to 2.5 at 0900, 2.5 at 1500, and 5 at HS. check labs in the morning. otherwise continue current mgmt. 08/23: pinching and wandering continue. unclear if due to addition of morning zyprexa or VPA. check ammonia. slept well last night on trazodone. schedule trazodone. otherwise continue current mgmt. labs reviewed, reassuring. VPA 30. 08/24 continue tx. Reason for continued inpatient stay Substantial Risk for: inability to function Time Spent With Patient Time: Total time managing care of this patient today ____ minutes.
[2024-08-25] MEDS: OLANZapine 2.5 MG TABLET PO ×3 (00:55→15:55)
[2024-08-25 08:00] VITALS: BP 123/60; PULSE 50; RESP 16; TEMP 36.5; O2SAT 98
--- NOTE | 2024-08-25 08:54 | HO.PSYCHPN ---
Subjective Subjective Date of Service: 08/25/24 Reason For Visit: F03.911 Subjective Notes: Conditional Voluntary Healthcare Proxy: Yes Interim History: Pt slept through the night. She seems to be tolerating increase of depakote. No aggression, does grab things at times. She eats with asistance. continues with one to one due to confusion and disorganization. Diagnostics Vital Signs (24Hr): Vital Signs - 24 hr 08/24/24 20:00 08/25/24 08:00 Temperature 98.1 F 97.7 F Pulse Rate 81 50 Respiratory Rate 18 16 Blood Pressure 128/82 123/60 Pulse Oximetry 99 98 Oxygen Delivery Method Room Air Room Air BMI result Body Mass Index 23.0 Labs 08/23/24 07:33 08/23/24 07:33 Labs: Laboratory Results - last 48 hr 08/23/24 18:36 Ammonia 31 Medications Medications Current Medications Acetaminophen (Acetaminophen 325 Mg Tablet) 650 mg PO Q6H PRN PRN Reason: Headache/Pain, Scale 1-10 Last Admin: 08/24/24 19:51 Dose: 650 mg Al Hydroxide/Mg Hydroxide (Magnesium Hydrox/Alum Hydrox 30 Ml Oral.Susp) 30 ml PO Q6H PRN PRN Reason: Heartburn/Nausea Divalproex Sodium (Divalproex Sodium Sprinkles 125 Mg ) 250 mg PO TID [facility] Last Admin: 08/24/24 19:52 Dose: 250 mg Magnesium Hydroxide (Milk Of Magnesia 30 Ml Oral.Susp) 30 ml PO DAILY PRN PRN Reason: Constipation Olanzapine (Olanzapine 5 Mg Tablet) 5 mg PO BEDTIME [facility] Last Admin: 08/24/24 19:52 Dose: 5 mg Olanzapine (Olanzapine 2.5 Mg Tablet) 2.5 mg PO TID PRN PRN Reason: agitation Last Admin: 08/25/24 00:55 Dose: 2.5 mg Olanzapine (Olanzapine 2.5 Mg Tablet) 2.5 mg PO BID@0900,1500 [facility] Last Admin: 08/24/24 15:11 Dose: 2.5 mg Trazodone HCl (Trazodone Hcl 50 Mg Tablet) 50 mg PO BEDTIME [facility] Last Admin: 08/24/24 19:52 Dose: 50 mg Allergies Allergies Allergy/AdvReac Type Severity Reaction Status Date / Time No Known Allergies Allergy Verified 08/14/24 18:16 Assessment & Plan Assessment & Plan (1) Alzheimer dementia with behavioral disturbance: Status: Acute Code(s): G30.9 - Alzheimer's disease, unspecified; F02.818 - Dementia in other diseases classified elsewhere, unspecified severity, with other behavioral disturbance Plan 08/16 will simplify regimen- d/c seroquel. will keep olanzapine 5mg po qhs, add 2.5mg po daily at 1300, prn olanzapine 2.5mg po TID prn agitation. monitor oversedation, maintain adequate hydration, s/s of ortho hotn. VS stable. 08/17: active, wandering, intrusive. add VPA 125 mg TID. otherwise continue current mgmt. case D/W johanna and ELIZABETH Myla. 08/19 staff reports no aggressive behaviors 08/21: no aggressive behaviors. wandering. talking to nobody. continue current mgmt. 08/22: increase zyprexa from 2.5 at 1 pm and 5 at HS to 2.5 at 0900, 2.5 at 1500, and 5 at HS. check labs in the morning. otherwise continue current mgmt. 08/23: pinching and wandering continue. unclear if due to addition of morning zyprexa or VPA. check ammonia. slept well last night on trazodone. schedule trazodone. otherwise continue current mgmt. labs reviewed, reassuring. VPA 30. 08/24 increase depakote 08/25 continue tx. Reason for continued inpatient stay Substantial Risk for: inability to function Time Spent With Patient Time: Total time managing care of this patient today ____ minutes.
[2024-08-25] MEDS: Divalproex Sodium Sprinkles 125 MG CAP.DR.SPR 250 MG PO ×3 (10:36→20:22)
[2024-08-25 20:00] VITALS: BP 138/77; PULSE 79; RESP 16; TEMP 36.4; O2SAT 98
[2024-08-25] MEDS: OLANZapine 5 MG TABLET PO (20:22)
[2024-08-25] MEDS: traZODone HCL 50 MG TABLET PO (20:22)
[2024-08-26 08:10] VITALS: BP 140/65; PULSE 55; RESP 16; TEMP 36.4; O2SAT 99
[2024-08-26] MEDS: OLANZapine 2.5 MG TABLET PO ×2 (10:00→14:38)
[2024-08-26] MEDS: Divalproex Sodium Sprinkles 125 MG CAP.DR.SPR 250 MG PO ×3 (10:00→20:09)
--- NOTE | 2024-08-26 12:36 | HO.PSYCHPN ---
Subjective Subjective Date of Service: 08/26/24 Reason For Visit: F03.911 Subjective Notes: Conditional Voluntary Interim History: Patient was seen and discussed in rounds today. Records and plans were reviewed. She has been stable, needing lot of assistance, with eating and management. Eating and sleeping adequately. No complaints or side effects. She is being discharged next week. No changes were made today Review of Systems Review of Systems Yes all other systems are reviewed and are negative Mental Status Exam Mental Status Exam Narrative: Pt with good hygiene, restless, unable to sit for prolonged periods of times, grabbing and pulling. permanent smiling facil expression. mostly mute. Diagnostics Vital Signs (24Hr): Vital Signs - 24 hr 08/25/24 20:00 08/26/24 08:10 Temperature 97.5 F 97.5 F Pulse Rate 79 55 Respiratory Rate 16 16 Blood Pressure 138/77 140/65 H Pulse Oximetry 98 99 Oxygen Delivery Method Room Air Room Air BMI result Body Mass Index 23.0 Labs 08/23/24 07:33 08/23/24 07:33 Medications Medications Current Medications Acetaminophen (Acetaminophen 325 Mg Tablet) 650 mg PO Q6H PRN PRN Reason: Headache/Pain, Scale 1-10 Last Admin: 08/24/24 19:51 Dose: 650 mg Al Hydroxide/Mg Hydroxide (Magnesium Hydrox/Alum Hydrox 30 Ml Oral.Susp) 30 ml PO Q6H PRN PRN Reason: Heartburn/Nausea Divalproex Sodium (Divalproex Sodium Sprinkles 125 Mg ) 250 mg PO TID [facility] Last Admin: 08/26/24 10:00 Dose: 250 mg Magnesium Hydroxide (Milk Of Magnesia 30 Ml Oral.Susp) 30 ml PO DAILY PRN PRN Reason: Constipation Olanzapine (Olanzapine 5 Mg Tablet) 5 mg PO BEDTIME [facility] Last Admin: 08/25/24 20:22 Dose: 5 mg Olanzapine (Olanzapine 2.5 Mg Tablet) 2.5 mg PO TID PRN PRN Reason: agitation Last Admin: 08/25/24 00:55 Dose: 2.5 mg Olanzapine (Olanzapine 2.5 Mg Tablet) 2.5 mg PO BID@0900,1500 [facility] Last Admin: 08/26/24 10:00 Dose: 2.5 mg Trazodone HCl (Trazodone Hcl 50 Mg Tablet) 50 mg PO BEDTIME [facility] Last Admin: 08/25/24 20:22 Dose: 50 mg Allergies Allergies Allergy/AdvReac Type Severity Reaction Status Date / Time No Known Allergies Allergy Verified 08/14/24 18:16 Assessment & Plan Assessment & Plan (1) Alzheimer dementia with behavioral disturbance: Status: Acute Code(s): G30.9 - Alzheimer's disease, unspecified; F02.818 - Dementia in other diseases classified elsewhere, unspecified severity, with other behavioral disturbance Plan 08/16 will simplify regimen- d/c seroquel. will keep olanzapine 5mg po qhs, add 2.5mg po daily at 1300, prn olanzapine 2.5mg po TID prn agitation. monitor oversedation, maintain adequate hydration, s/s of ortho hotn. VS stable. 08/17: active, wandering, intrusive. add VPA 125 mg TID. otherwise continue current mgmt. case D/W johanna and ELIZABETH Lanza. 08/19 staff reports no aggressive behaviors 08/21: no aggressive behaviors. wandering. talking to nobody. continue current mgmt. 08/22: increase zyprexa from 2.5 at 1 pm and 5 at HS to 2.5 at 0900, 2.5 at 1500, and 5 at HS. check labs in the morning. otherwise continue current mgmt. 08/23: pinching and wandering continue. unclear if due to addition of morning zyprexa or VPA. check ammonia. slept well last night on trazodone. schedule trazodone. otherwise continue current mgmt. labs reviewed, reassuring. VPA 30. 08/24 increase depakote 08/25 continue tx. 08/26: Continue current regimen and plans Reason for continued inpatient stay Substantial Risk for: inability to function and med/psych decompensation Time Spent With Patient Time: Total time managing care of this patient today ____ minutes.
[2024-08-26 20:00] VITALS: BP 166/67; PULSE 86; RESP 15; TEMP 36.4; O2SAT 99
[2024-08-26] MEDS: traZODone HCL 50 MG TABLET PO (20:08)
[2024-08-26] MEDS: OLANZapine 5 MG TABLET PO (20:08)
[2024-08-27] MEDS: OLANZapine 2.5 MG TABLET PO ×4 (02:12→20:36)
[2024-08-27 08:00] VITALS: BP 134/69; PULSE 69; RESP 18; TEMP 36.2; O2SAT 99
[2024-08-27] MEDS: Divalproex Sodium Sprinkles 125 MG CAP.DR.SPR 250 MG PO ×3 (08:58→20:10)
--- NOTE | 2024-08-27 11:35 | HO.PSYCHPN ---
Subjective Subjective Date of Service: 08/27/24 Reason For Visit: F03.911 Subjective Notes: Conditional Voluntary Interim History: Patient was seen and discussed in rounds today. Records and plans were reviewed. She has been stable, needing lot of assistance, with eating and management. Eating and sleeping adequately. No complaints. Continues to be confused, pacing and at times irritable. Compliant with medications. Little communication and engagement. Review of Systems Review of Systems Yes Unobtainable due to mental status Mental Status Exam Mental Status Exam Narrative: Pt with good hygiene, restless, unable to sit for prolonged periods of times, grabbing and pulling. permanent smiling facil expression. mostly mute. Diagnostics Vital Signs (24Hr): Vital Signs - 24 hr 08/26/24 20:00 08/27/24 08:00 Temperature 97.5 F 97.2 F Pulse Rate 86 69 Respiratory Rate 15 18 Blood Pressure 166/67 H 134/69 Pulse Oximetry 99 99 Oxygen Delivery Method Room Air Room Air BMI result Body Mass Index 23.0 Labs 08/23/24 07:33 08/23/24 07:33 Medications Medications Current Medications Acetaminophen (Acetaminophen 325 Mg Tablet) 650 mg PO Q6H PRN PRN Reason: Headache/Pain, Scale 1-10 Last Admin: 08/24/24 19:51 Dose: 650 mg Al Hydroxide/Mg Hydroxide (Magnesium Hydrox/Alum Hydrox 30 Ml Oral.Susp) 30 ml PO Q6H PRN PRN Reason: Heartburn/Nausea Divalproex Sodium (Divalproex Sodium Sprinkles 125 Mg ) 250 mg PO TID [facility] Last Admin: 08/27/24 08:58 Dose: 250 mg Magnesium Hydroxide (Milk Of Magnesia 30 Ml Oral.Susp) 30 ml PO DAILY PRN PRN Reason: Constipation Olanzapine (Olanzapine 5 Mg Tablet) 5 mg PO BEDTIME [facility] Last Admin: 08/26/24 20:08 Dose: 5 mg Olanzapine (Olanzapine 2.5 Mg Tablet) 2.5 mg PO TID PRN PRN Reason: agitation Last Admin: 08/27/24 02:12 Dose: 2.5 mg Olanzapine (Olanzapine 2.5 Mg Tablet) 2.5 mg PO BID@0900,1500 [facility] Last Admin: 08/27/24 09:00 Dose: 2.5 mg Trazodone HCl (Trazodone Hcl 50 Mg Tablet) 50 mg PO BEDTIME [facility] Last Admin: 08/26/24 20:08 Dose: 50 mg Allergies Allergies Allergy/AdvReac Type Severity Reaction Status Date / Time No Known Allergies Allergy Verified 08/14/24 18:16 Assessment & Plan Assessment & Plan (1) Alzheimer dementia with behavioral disturbance: Status: Acute Code(s): G30.9 - Alzheimer's disease, unspecified; F02.818 - Dementia in other diseases classified elsewhere, unspecified severity, with other behavioral disturbance Plan 08/16 will simplify regimen- d/c seroquel. will keep olanzapine 5mg po qhs, add 2.5mg po daily at 1300, prn olanzapine 2.5mg po TID prn agitation. monitor oversedation, maintain adequate hydration, s/s of ortho hotn. VS stable. 08/17: active, wandering, intrusive. add VPA 125 mg TID. otherwise continue current mgmt. case D/W johanna and ELIZABETH Lanza. 08/19 staff reports no aggressive behaviors 08/21: no aggressive behaviors. wandering. talking to nobody. continue current mgmt. 08/22: increase zyprexa from 2.5 at 1 pm and 5 at HS to 2.5 at 0900, 2.5 at 1500, and 5 at HS. check labs in the morning. otherwise continue current mgmt. 08/23: pinching and wandering continue. unclear if due to addition of morning zyprexa or VPA. check ammonia. slept well last night on trazodone. schedule trazodone. otherwise continue current mgmt. labs reviewed, reassuring. VPA 30. 08/24 increase depakote 08/25 continue tx. 08/26: Continue current regimen and plans 08/27: Continue current regimen and plans Reason for continued inpatient stay Substantial Risk for: inability to function Time Spent With Patient Time: Total time managing care of this patient today ____ minutes.
[2024-08-27 19:58] VITALS: BP 116/74; PULSE 82; RESP 16; TEMP 37.1; O2SAT 100
[2024-08-27] MEDS: OLANZapine 5 MG TABLET PO (20:09)
[2024-08-27] MEDS: traZODone HCL 50 MG TABLET PO (20:09)
[2024-08-27] MEDS: Acetaminophen 325 MG TABLET 650 MG PO (20:35)
[2024-08-28 07:58] LABS: Valproate 80.9 mcg/mL (50.0-100.0)
[2024-08-28 08:00] VITALS: BP 120/55; PULSE 69; RESP 16; TEMP 36.3
--- NOTE | 2024-08-28 10:10 | PC.NURSE ---
Awaiting Olanzapine and Divalproex/ pharmacy contacted x2.
--- NOTE | 2024-08-28 10:26 | PM.PSYDC ---
DS: Providers Provider Date of Service: 08/28/24 Date of admission: 08/14/24 16:35 Date of discharge: 08/28/24 Primary care physician: Unknown Physician Consults: 08/14/24 18:16 Consult to Hospitalist Routine Comment: Consulting Provider[place] [facility] [facility] Reason For Exam: medical H&P Discharging clinician: Elly Chu DS: Diagnosis Discharge Diagnosis (1) Alzheimer dementia with behavioral disturbance: Status: Acute DS: Medications Discharge Medications Home Medications: Previous Rx's ?Medication ?Instructions ?Recorded divalproex 125 mg capsule,delayed 250 mg (2 x 125 mg) PO TID #180 08/28/24 release sprinkle caps olanzapine 2.5 mg tablet 2.5 mg PO BID@0900,1500 #60 tabs 08/28/24 olanzapine 5 mg tablet 5 mg PO BEDTIME #30 tabs 08/28/24 trazodone 50 mg tablet 50 mg PO BEDTIME #30 tabs 08/28/24 Mental Status Exam Mental Status Exam Narrative: Pt with good hygiene, restless, unable to sit for prolonged periods of times, grabbing and pulling. permanent smiling facil expression. mostly mute. Data Data Completed and Pending Completed studies during hospitalization [Text1]: 08/23/24 08/23/24 08/28/24 07:33 18:36 07:17 WBC 5.2 RBC 4.26 Hgb 12.9 Hct 39.1 MCV 91.8 MCH 30.3 MCHC 33.0 RDW 13.3 Plt Count 253 MPV 9.9 Immature Gran % (Auto) 0.4 Neut % (Auto) 44.1 L Lymph % (Auto) 45.8 H Haywood % (Auto) 8.1 Eos % (Auto) 1.0 Baso % (Auto) 0.6 Lymph # (Auto) 2.4 Haywood # (Auto) 0.4 Eos # (Auto) 0.1 Baso # (Auto) 0.0 Abs Immat Gran (auto) 0.02 Absolute Neuts (auto) 2.3 Absolute Nucleated RBC 0.000 Nucleated RBC % (auto) 0.0 Sodium 144 Potassium 4.2 Chloride 110 H Carbon Dioxide 28 Anion Gap 10 L BUN 17 H Creatinine 0.67 Estim Creat Clear Calc 54.0 Estimated GFR > 60 Random Glucose 90 Calcium 9.1 Total Bilirubin 0.2 Direct Bilirubin < 0.2 AST 26 ALT 17 Alkaline Phosphatase 65 Ammonia 31 Total Protein 6.6 Albumin 3.8 Valproic Acid 31.0 L 80.9 DS: Summary Hospital Course Hospital Course: pt with advanced alzheimer's dementia who has been cared for at home by her daughter presented to outside hospital with gradually more aggressive behaviors such that family is no longer able to manage her. pt has increasingly romain throwing objects in the house, pushing people, hitting people, biting people. disrobing in front of others. medical w/u at outside ED unremarkable. pt essentially mute, pulling on MD's badge, punching at MD weakly. smiles throughout. on 1:1 for safety. no intelligible speech produced. Past Psychiatric History: Dx: dementia with behavioral disturbance hosps: none prior SA: no SIB: no outpt: psych MD at [facility] COURSE On the unit, pt was admitted on a CV signed by HCP. Pt presents as non verbal. She is not oriented to place, month nor situation. She was pacing the unit, grabbing seems more sensorial need that aggressive behaviors. She needed a one to one due to wondering and grabbing others and objects. She was started on olanzapine which was titrated to 2.5mg po in the morning and than around 2pm. She also had a night time dose of olanzapine. She was started on depakote 125mg po TID, which was increased to 250mg po TID. Her VS were stable. We had family meeting to discuss medication changes and safety needs at home, including the fact that she needs 24/7 supervision. She was sleeping and eating well. She does need supervision eating to prevent choking. Status at Discharge Cognitive/behavioral status at discharge: Pt with bright, non verbal. grabbing objects. No VH/AH. Not oriented to place, month, year. Not aggressive towards self or others. Functional status at discharge: independent ambulation Overall status at discharge: patient is back to baseline Time Spent with Patient Time attestation: Total time managing care of this patient today _45___ minutes. Discharge Plan Discharge Anticipated Discharge Date/Time: 08/28/24 10:22 Patient Disposition: Home, Self-Care Discharge Diagnosis: Alzheimer's Disease Referrals: Dr Mariel Pyle General PCP [Other] - 09/04/24 11:00 am Referral Note: Your next appointment with your PCP is scheduled for 09/04/24 at 11AM. Problems: Alzheimer dementia with behavioral disturbance Dr Bowser [facility] General Psychiatry [Other] - 08/30/24 12:00 pm Referral Note: Your next appointment with Dr Bowser is scheduled for 08/30/24 at 12pm. Discharge Medications: New trazodone 50 mg Tablet 50 mg PO BEDTIME Qty: 30 0RF olanzapine 5 mg Tablet 5 mg PO BEDTIME Qty: 30 0RF olanzapine 2.5 mg Tablet 2.5 mg PO BID@0900,1500 Qty: 60 0RF divalproex 125 mg Capsule, Delayed Rel Sprinkle 250 mg PO TID Qty: 180 0RF Discontinued quetiapine 25 mg Tablet 25 mg PO Q6H PRN (Reason: Racing thoughts) mirtazapine 7.5 mg Tablet 7.5 mg PO BEDTIME PRN (Reason: Insomnia) olanzapine [Zyprexa Zydis] 5 mg Tablet,Disintegrating 5 mg PO BEDTIME olanzapine [Zyprexa Zydis] 5 mg Tablet,Disintegrating 5 mg PO Q8H PRN (Reason: Paranoia) Discharge Orders: Discharge Order (Routine); Ordered 08/28/24 Ordered By: Elly Chu Diet: Regular diet Activity on Discharge: As tolerated Stand Alone Forms: Patient Portal Discharge page Print Language: Unknown Care Plan Goals: maintain mood no aggression towards self or others Health Concerns: follow up with PCP Plan of Treatment: 1. Take medications as prescribed 2. Go to nearest ED or call 911 in event of emergency Assessment: Pt with bright affect. non verbal, sleeping and eating well. No oriented to situation, month or year.
[2024-08-28] MEDS: Divalproex Sodium Sprinkles 125 MG CAP.DR.SPR 250 MG PO ×2 (10:44→14:36)
[2024-08-28] MEDS: OLANZapine 2.5 MG TABLET PO ×2 (10:44→14:36)
[2024-08-28] MEDS: LORazepam 1 MG TABLET PO (12:34)
--- NOTE | 2024-08-28 17:27 | PC.NURSE ---
It was regular, planned discharge. Discharge instructions, with list of appointments/medications given to pt's daughter Justine and pt's . Leonie left the unit at 17:17 accompanied by family members, they took all her belongings.
== END 2024-08-28 17:17 | disposition home or self-care (01) | DRG 42 ==
PROVIDERS: Social Worker; Admitting Provider Psychiatry & Neurology Psychiatry; Visit Provider Psychiatry & Neurology Psychiatry
DX: G30.9 Alzheimer's disease, unspecified (principal); F02.811 Dementia in other diseases classified elsewhere, unspecified severity, with agitation; Z79.899 Other long term (current) drug therapy
CPT/HCPCS: 36415; 80048; 80076; 80164; 82140; 85025

== ENCOUNTER → 2024-08-14 16:35 | Outpatient (BNV) | payer MEDICAID, SELFPAY | PROVIDERS: Admitting Provider Psychiatry & Neurology Psychiatry; Visit Provider Nurse Practitioner Family | DX: G30.9 Alzheimer's disease, unspecified (principal); F02.818 Dementia in other diseases classified elsewhere, unspecified severity, with other behavioral disturbance | CPT/HCPCS: 99221 ==

== ENCOUNTER → 2024-08-14 16:35 | Outpatient (BNV) | payer OTHER, SELFPAY | PROVIDERS: Admitting Provider Psychiatry & Neurology Psychiatry; Visit Provider Psychiatry & Neurology Psychiatry | DX: G30.9 Alzheimer's disease, unspecified (principal); F02.818 Dementia in other diseases classified elsewhere, unspecified severity, with other behavioral disturbance | CPT/HCPCS: 99232; 99233 ==